=== PATIENT | male | born 1985 | race Caucasian/White ===

== ENCOUNTER 2022-11-16 12:36 | Emergency (ER) | payer OTHER, SELFPAY ==
--- NOTE | ~2022-11-16 | CT_ITS ---
EXAMINATION: CT abdomen pelvis w con DATE: 11/16/2022 14:01 INDICATION: Abdominal pain TECHNIQUE: Computed tomography (CT) of the abdomen and pelvis was performed with 100 cc Omnipaque 350 intravenous contrast. The dose-length product was 888.05 mGy-cm. Automated exposure control and iter ative reconstruction technique were employed. COMPARISON: None. FINDINGS: Lung bases are unremarkable. Heart size normal. No significant pleural or pericardial effus ion. The liver, spleen, pancreas, adrenal glands and kidneys are unremarkable. Gallbladder is present . Colonic diverticulosis without evidence for diverticulitis. Normal appendix. No significant vascula r abnormality. No lymphadenopathy. Gallbladder is present. No free air or free fluid. Bladder is unre markable. No abnormal pelvic masses or fluid collections. IMPRESSION: 1. No acute abdominal abnormality. Reviewed, dictated and finalized at location []
[2022-11-16 12:40] VITALS: BP 155/96; PULSE 84; RESP 18; TEMP 36.4; O2SAT 100
[2022-11-16 12:50] VITALS: BP 176/91; PULSE 72; RESP 19; O2SAT 100
[2022-11-16 12:57] LABS: Basophils Percent Auto 0.7 % (0.2-1.2); Eosinophils Absolute Auto 0.1 K/mm3 (0-0.3); Eosinophils Percent Auto 2.8 % (0-4.4); Hematocrit 44.2 % (42.0-52.0); Hemoglobin 14.8 g/dL (14.0-18.0); Immature Granulocyte Absolute 0.01 K/mm3 (0.00-0.031); Immature Granulocyte Percent A 0.2 % (0-0.5); Lymphocytes Percent Auto 27.6 % (18.3-44.2); Mean Corpuscular HGB Conc 33.5 g/dl (32-36); Mean Corpuscular Hemoglobin 30.9 pg (26-34); Mean Corpuscular Volume 92.3 fl (80-100); Mean Platelet Volume 10.4 fl (7.4-10.4); Monocytes Absolute Auto 0.5 K/mm3 (0.1-0.6); Monocytes Percent Auto 12.2 % (2.6-8.5); Neutrophils Absolute Auto 2.5 K/mm3 (1.3-6.7); Neutrophils Percent Auto 56.5 % (45.5-73.1); Platelet Count Result 270 k/mm3 (150-375); Red Blood Count 4.79 M/mm3 (4.6-6.20); Red Cell Distribution Width 13.1 % (11.5-14.5); White Blood Count 4.3 K/mm3 (4.5-10.0)
[2022-11-16 13:04] LABS: Appearance Urine Clear (Clear); Bilirubin Urine Negative (Negative); Blood Urine Negative (Negative); Color Urine Yellow (Yellow); Glucose Urine UA Negative (Negative); Ketones Urine Negative (Negative); Leukocyte Esterase Ur Negative LEU/UL (Negative); Nitrate Urine Negative (Negative); Protein Urine Negative (Negative); Specific Grav Ur 1.008 (1.001-1.035); Urobilinogen Urine 0.2 mg/dL (<2.0); pH Urine 7.5 (5.0-9.0)
[2022-11-16 13:06] LABS: Lactic Acid Reflex 1.5 mmol/L (0.7-2.0)
[2022-11-16 13:07] LABS: Alanine Aminotransferase 59 U/L (6-50); Albumin Level 5.2 g/dL (3.5-5.1); Alkaline Phosphatase 60 U/L (38-126); Anion Gap 5 mmol/L (8-16); Aspartate Amino Transferase 50 U/L (17-59); Bilirubin,Total 0.9 mg/dL (0.2-1.3); Blood Urea Nitrogen 10 mg/dL (9-20); Calcium 9.6 mg/dL (8.4-10.2); Carbon Dioxide 33 mmol/L (22-30); Chloride 100 mmol/L (98-107); Estimated CRCL calculation 143 ml/min; Estimated Glomerular Filt Rate > 60; Glucose 115 mg/dL (65-110); Lipase 73 U/L (23-300); Potassium 4.5 mmol/L (3.4-5.0); Sodium 138 mmol/L (137-145)
[2022-11-16 13:09] LABS: Partial Thromboplastin Time 29.9 SECONDS (22.3-36.8)
[2022-11-16 13:10] LABS: Add Urine Microscopic? NO
--- NOTE | 2022-11-16 13:22 | ED.ABDPAIN ---
HPI - Abdominal Pain General Chief Complaint: Abdominal Pain Stated Complaint: lower abd pain/lower back pain Time Seen by Provider: 11/16/22 12:42 History of Present Illness HPI narrative: 36-year-old male presented to the emergency department for evaluation of intermittent diffuse left lower quadrant and periumbilical abdominal pain. Patient denies any associated nausea vomiting or diarrhea. Patient reports he does drink alcohol 2 times a week. Patient has no prior history of diverticulitis, pancreatitis or gastritis. Patient denies any change in his bowel habits. Patient denies any hematemesis or melena or hematochezia. Related Data Allergies Allergy/AdvReac Type Severity Reaction Status Date / Time No Known Allergies Allergy Verified 11/16/22 12:38 Review of Systems Review of Systems: All systems reviewed & are unremarkable except as noted in HPI and below Exam Narrative: APPEARANCE: Well appearing, no pain, no distress, well-nourished. HEAD: normocephalic, atraumatic. EYES: PERRLA/EOMI, conjunctivae clear. NOSE: Normal no drainage NECK: Supple. No adenopathy, no masses. RESPIRATORY: Airway patent, respirations nonlabored. Clear to auscultation bilaterally, no rales, rhonchi, wheezing. CARDIOVASCULAR: Regular rate and rhythm without murmurs rubs or gallops. ABDOMINAL: Soft, left lower quadrant and periumbilical tenderness to palpation MUSCULOSKELETAL: Moves all extremities. Strength/ROM intact, No edema, No calf tenderness. NEURO: Alert. Cranial nerves II through XII intact. SKIN: Warm, dry. Normal Color Course Course Emergency Course: 36-year-old male presented the emergency department for evaluation of abdominal pain. Patient was afebrile with no leukocytosis. Patient's CMP has no significant abnormalities. UA showed no evidence of infection. CT scan was ordered due to the nature of the patient's pain and CT scan showed no acute abnormality. Patient was updated on the treatment plan for home including decreased alcohol and NSAID use along with starting Prilosec. Patient was also encouraged of close follow-up with his primary care physician. All questions and concerns were addressed Vital Signs Vital signs: Vital Signs Temperature 97.6 F 11/16/22 12:40 Pulse Rate 84 11/16/22 12:40 Respiratory Rate 18 11/16/22 12:40 Blood Pressure 155/96 H 11/16/22 12:40 Pulse Oximetry 100 11/16/22 12:40 Oxygen Delivery Room Air 11/16/22 12:40 Temperature 97.6 F 11/16/22 12:40 Pulse Rate 87 11/16/22 14:45 Respiratory Rate 18 11/16/22 14:45 Blood Pressure 140/99 H 11/16/22 14:45 Pulse Oximetry 100 11/16/22 14:45 Oxygen Delivery Room Air 11/16/22 12:40 MDM - Abdominal Pain Differential Diagnosis Differential diagnosis: Likely abdominal pain, acute appendicitis, calculus of kidney, constipation, diverticulitis, endometriosis, gastroenteritis, pancreatitis and small bowel obstruction Lab Data Attestation: I reviewed the patient's lab results. 11/16/22 12:50 11/16/22 12:50 Labs: Lab Results 11/16/22 11/16/22 Range/Units 12:50 12:56 WBC 4.3 L (4.5-10.0) K/mm3 RBC 4.79 (4.6-6.20) M/mm3 Hgb 14.8 (14.0-18.0) g/dL Hct 44.2 (42.0-52.0) % MCV 92.3 (80-100) fl MCH 30.9 (26-34) pg MCHC 33.5 (32-36) g/dl RDW 13.1 (11.5-14.5) % Plt Count 270 (150-375) k/mm3 MPV 10.4 (7.4-10.4) fl Immature Gran % (Auto) 0.2 (0-0.5) % Neut % (Auto) 56.5 (45.5-73.1) % Lymph % (Auto) 27.6 (18.3-44.2) % Gillespie % (Auto) 12.2 H (2.6-8.5) % Eos % (Auto) 2.8 (0-4.4) % Baso % (Auto) 0.7 (0.2-1.2) % Lymph # (Auto) 1.20 (0.9-3.2) K/mm3 Gillespie # (Auto) 0.5 (0.1-0.6) K/mm3 Eos # (Auto) 0.1 (0-0.3) K/mm3 Baso # (Auto) 0.0 (0.0-0.1) K/mm3 Abs Immat Gran (auto) 0.01 (0.00-0.031) K/mm3 Absolute Neuts (auto) 2.5 (1.3-6.7) K/mm3 Absolute Nucleated RBC 0.0 (0.0-0.012) K/mm3 Nucleated RBC % 0.0
[2022-11-16 14:45] VITALS: BP 140/99; PULSE 87; RESP 18; O2SAT 100
== END 2022-11-16 14:46 | disposition home or self-care (01) ==
PROVIDERS: Emergency Provider Emergency Medicine; PCP Family Medicine
DX: R10.33 Periumbilical pain (principal)
CPT/HCPCS: 36415; 74177; 80053; 81003; 83605; 83690; 85025; 85610; 85730; 99284; Q9967

== ENCOUNTER 2022-12-31 08:00 | Outpatient (NON) | payer OTHER, SELFPAY | END 2022-12-31 08:01 | disposition home or self-care (01) | PROVIDERS: PCP Family Medicine; Visit Provider Internal Medicine Gastroenterology | DX: R10.9 Unspecified abdominal pain (principal) | CPT/HCPCS: 88305 ==

== ENCOUNTER 2022-12-31 08:19 | Day surgery (SDC) | payer OTHER, SELFPAY ==
[2022-12-31 08:40] VITALS: BP 143/96; PULSE 84; RESP 16; TEMP 36.6; O2SAT 98
--- NOTE | 2022-12-31 09:11 | WPDANESEPPF ---
Anes - Initial Pre Proc Eval Procedure: Operation Date: 12/31/22 10:00 Proposed Procedures p Esophagogastroduodenoscopy - Steffen Lewis MD s Diagnostic Colonoscopy - Steffen Lewis MD Date/Time: 12/31/22 09:11 Surgeon: Steffen Lewis MD Pre Op Diagnosis: Unspecifed ABD Pain, LLQ Tenderness Patient Data Age: 37 Gender: M Height: Weight: 103 kg Last Vital Signs Temp 36.6 C 12/31/22 08:40 Pulse 84 12/31/22 08:40 Resp 16 12/31/22 08:40 BP 143/96 H 12/31/22 08:40 Pulse Ox 98 12/31/22 08:40 O2 Del Method Room Air 12/31/22 08:40 Allergies Allergy/AdvReac Type Severity Reaction Status Date / Time No Known Allergies Allergy Verified 12/18/22 11:35 Home Medications Medication Instructions Recorded Confirmed Type atorvastatin 20 mg tablet 20 mg PO DAILY 11/24/22 12/31/22 History lisinopril 20 mg tablet 20 mg PO DAILY 11/24/22 12/31/22 History multivitamin 1 tablet PO DAILY 11/24/22 12/31/22 History venlafaxine 75 mg tablet 75 mg PO DAILY 11/24/22 12/31/22 History milk thistle 175 mg tablet 175 mg PO BID 12/18/22 12/31/22 History Patient hx anesthesia problems: none Family hx anesthesia problems: none Results Review: All pre-operative results and documents have been reviewed as part of the pre-operative evaluation. [facility] Past Medical History Medical History Abdominal pain Elevated blood pressure reading LLQ abdominal tenderness Obesity Surgical History Surgical History (Updated 12/31/22 @ 09:12 by Moi Reid MD) History of mandibular surgery 2008 s/p fracture Social History Social History Smoking status: Former smoker Additional smoking assessment comments: quit smoking about 15 years ago Alcohol intake: current Drinks per week: 15 Substance use type: does not use Spiritual care concerns: No Anes - Eval Final PreProcedure Day of Procedure 12/31/22 09:11 Patient weight: overweight Heart: regular rate and rhythm Lungs: clear to auscultation Airway: Mallampati scale class II Neurological: alert and oriented Last oral intake: >/= 8 hours ASA classification: II Emergent: no Anesthetic plan: proceed Anesthesia type and monitoring: general GIVS and standard monitoring Results Review: All pre-operative results and documents have been reviewed as part of the pre-operative evaluation. Informed Consent: The patient's anesthetic plan and its attendant risks and benefits were discussed with the patient/family/POA. Questions were solicited and answers provided to the satisfaction of the patient/family/POA.
--- NOTE | 2022-12-31 09:26 | PM.HPGS ---
History of Present Illness History of Present Illness Consent: Risks, benefits, and alternatives have been discussed and questions answered. Patient agrees to proceed with procedure. Chief complaint: Unspecifed ABD Pain, LLQ Tenderness Narrative: Alexi Copeland is a 37 year old male with intermittent abdominal pain, ct scan showed diverticulosis, never had scopes Review of Systems Constitutional: Constitutional: Denies headache(s) and Denies weakness Eyes: Eyes: Denies blurry vision ENT: Reports Normal hearing present, Denies headache(s) and Denies neck pain Cardiovascular: Cardiovascular: Denies chest pain and Denies dyspnea Respiratory: Respiratory: Denies dyspnea Gastrointestinal: Gastrointestinal: Reports no additional gastrointestinal complaints Genitourinary: Genitourinary: Denies dysuria Musculoskeletal: Musculoskeletal: Denies neck pain Integumentary/Breasts: Skin/Breast: Denies dry skin Neurologic: Reports Normal hearing present, Denies headache(s) and Denies weakness Psychiatric: Psychiatric: Denies anxiety Endocrine: Endocrine: Denies change in body appearance Hematologic/Lymphatic: Hematologic/Lymphatic: Denies easy bleeding Allergic/Immunologic: Allergic/Immunologic: Denies urticaria PMFSH Past Medical History Medical History Abdominal pain Elevated blood pressure reading LLQ abdominal tenderness Obesity Surgical History Surgical History (Updated 12/31/22 @ 09:12 by Moi Reid MD) History of mandibular surgery 2008 s/p fracture Social History Social History Smoking status: Former smoker Additional smoking assessment comments: quit smoking about 15 years ago Alcohol intake: current Drinks per week: 15 Substance use type: does not use Spiritual care concerns: No Meds Home Medications and Allergies Home Medications Medication Instructions Recorded Confirmed Type atorvastatin 20 mg tablet 20 mg PO DAILY 11/24/22 12/31/22 History lisinopril 20 mg tablet 20 mg PO DAILY 11/24/22 12/31/22 History multivitamin 1 tablet PO DAILY 11/24/22 12/31/22 History venlafaxine 75 mg tablet 75 mg PO DAILY 11/24/22 12/31/22 History milk thistle 175 mg tablet 175 mg PO BID 12/18/22 12/31/22 History Allergies Allergy/AdvReac Type Severity Reaction Status Date / Time No Known Allergies Allergy Verified 12/18/22 11:35 Vital Signs Vital Signs - 24 hr 12/31/22 08:40 Temperature 97.8 F Pulse Rate 84 Respiratory Rate 16 Blood Pressure 143/96 H Pulse Oximetry 98 Oxygen Delivery Room Air Exam Const: General: comfortable and no acute distress HENMT: Face/Nose/Sinus: Normal nares present Eyes: General: appearance normal, both eyes and all related structures Neck: Neck: no JVD Resp: Auscultation: clear to auscultation bilaterally Cardio: Rate: regular rate Rhythm: regular rhythm GI: Inspection: non-distended GI Palp: Yes Soft to palpation Skin: General skin exam: normal color Neuro: General: gait normal Speech: normal speech Extrem: General: normal to inspection Psych: Mental Status: mental status grossly normal Assessment and Plan Assessment and plan (1) Abdominal pain: Code(s): R10.9 - Unspecified abdominal pain Status: Acute Assessment and Plan: will assess with egd and colonoscopy
[2022-12-31] MEDS: LACTATED RINGERS 1,000 ML 150 ML IV CONT (09:36)
[2022-12-31 09:57] VITALS: BP 124/90; PULSE 89; RESP 14; O2SAT 97
[2022-12-31 10:07] VITALS: BP 118/90; PULSE 70; RESP 18; O2SAT 98
[2022-12-31 10:17] VITALS: BP 128/94; PULSE 65; RESP 14; O2SAT 98
--- NOTE | 2022-12-31 10:23 | WPDANESPN ---
Anes - Prog Note Post-Op Date/Time: 12/31/22 10:23 Cardiovascular status: normal Respiratory status: normal Airway patency: baseline Mental status: baseline Post-Op hydration status: normal Vital Signs: Last Vital Signs Temp 36.6 C 12/31/22 08:40 Pulse 70 12/31/22 10:07 Resp 18 12/31/22 10:07 BP 118/90 12/31/22 10:07 Pulse Ox 98 12/31/22 10:07 O2 Del Method Room Air 12/31/22 10:07 Pain Score (VAS): 0/10 I/O: Intake & Output 12/30/22 12/31/22 12/31/22 23:59 07:59 15:59 Intake Total 500 Balance 500 Patient Feedback: Patient satisfied with anesthetic care.
== END 2022-12-31 10:32 | disposition home or self-care (01) ==
PROVIDERS: PCP Family Medicine; Visit Provider Internal Medicine Gastroenterology
PROC: 0DJ08ZZ Inspection of Upper Intestinal Tract, Via Natural or Artificial Opening Endoscopic (ICD-10-PCS; CPT 43235; principal; 2022-12-31 10:00)
PROC: 0DJD8ZZ Inspection of Lower Intestinal Tract, Via Natural or Artificial Opening Endoscopic (ICD-10-PCS; CPT 45378; 2022-12-31 10:00)
DX: R10.32 Left lower quadrant pain (principal); K64.8 Other hemorrhoids; R10.30 Lower abdominal pain, unspecified
CPT/HCPCS: 45378; 43239